=== PATIENT | male | born 2000 | race Caucasian/White ===

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

== ENCOUNTER 2020-03-29 10:51 | Emergency (ER) | payer OTHER ==
[~2020-03-29] VITALS: Ht 185.4 cm; Wt 72.6 kg
[~2020-03-29 10:51] MED LIST changes: +CEFP200 PO; +KETO10 PO
[2020-03-29] MEDS ORDERED: KEFLEX500 MG (11:23)
[2020-03-29] MEDS ORDERED: HYDR1TAB94 PO (14:26)
[2020-03-29] MEDS ORDERED: AMOCLA875 PO (14:26)
== END 2020-03-29 15:17 | disposition home or self-care (01) ==
LOC: ER 10:51
DX: J36 Peritonsillar abscess (principal); F17.200 Nicotine dependence, unspecified, uncomplicated
CPT/HCPCS: 42700; 70491; 80048; 85025; 96365-59; 96375-59; 99283-25; A9270; J1170; J1885; J3010; Q9967

== ENCOUNTER → 2022-02-10 | Outpatient (CLI) | payer OTHER ==
[~2022-02-10] MED LIST changes: +AMOCLA875 PO; +HYDR1TAB94 PO; +KEFLEX500 MG; +Norco 5-325 Ta1 EACH PO
== END | disposition home or self-care (01) ==
DX: R10.31 Right lower quadrant pain (principal)

== ENCOUNTER 2022-11-12 07:00 | Emergency (ER) | payer OTHER ==
[~2022-11-12] VITALS: Ht 185.4 cm; Wt 74.8 kg
[2022-11-12 10:37] LABS: Bun/Creatinine Ratio 12.1 (12.0-20.0); Calcium, Blood 9.2 mg/dL (8.5-10.1); Creatinine, Blood 0.83 mg/dL (0.60-1.20); Potassium, Blood 5.4 mmol/L (3.5-5.5)
[2022-11-12 10:38] LABS: BASOPHILS ABSOLUTE AUTO 0.07 K/mm3 (0.00-0.23); BASOPHILS PERCENT AUTO 0 % (0-2); EOSINOPHILS ABSOLUTE AUTO 0.05 K/mm3 (0.00-0.68); EOSINOPHILS PERCENT AUTO 0 % (0-6); Hematocrit 45.6 % (37.0-53.0); Hemoglobin 15.7 g/dL (13.5-17.5); IMMATURE GRAN ABSOLUTE AUTO 0.11 K/mm3 (0.00-0.10); IMMATURE GRAN PERCENT AUTO 1 % (0-1); LYMPHOCYTES ABSOLUTE AUTO 1.51 K/mm3 (0.84-5.20); LYMPHOCYTES PERCENT AUTO 8 % (21-46); MONOCYTES ABSOLUTE AUTO 1.63 K/mm3 (0.16-1.47); MONOCYTES PERCENT AUTO 8 % (4-13); Mean Corpuscular HGB 30.7 pg (26.0-34.0); Mean Corpuscular HGB Conc 34.4 g/dL (31.5-36.5); Mean Corpuscular Volume 89 fL (80-100); NEUTROPHILS PERCENT AUTO 83 % (41-73); RDW Coefficient Variation 12.8 % (11.7-14.2); Red Blood Cell Count 5.11 M/mm3 (4.30-5.90); White Blood Cell Count 20.07 K/mm3 (4.00-11.30)
[2022-11-12 11:24] VITALS: BP 117/76
== END 2022-11-12 11:43 | disposition home or self-care (01) ==
LOC: ER 07:00
PROVIDERS: Physician Assistant
DX: K04.7 Periapical abscess without sinus (principal); F17.200 Nicotine dependence, unspecified, uncomplicated; Z88.0 Allergy status to penicillin
CPT/HCPCS: 41800; 80048; 85025; 96365-59; 96375-59; 99283-25; J1885

== ENCOUNTER 2022-11-12 19:10 | Emergency (ER) | payer OTHER ==
[~2022-11-12] VITALS: Ht 185.4 cm; Wt 74.8 kg
[2022-11-12 19:24] VITALS: BP 134/73
== END 2022-11-12 20:30 | disposition home or self-care (01) ==
LOC: ER 19:10
DX: K04.7 Periapical abscess without sinus (principal); F17.200 Nicotine dependence, unspecified, uncomplicated
CPT/HCPCS: 99282